=== PATIENT | male | born 1980 | race Caucasian/White ===

== ENCOUNTER 2016-08-01 15:05 | Emergency (ER) | payer SELFPAY ==
--- NOTE | 2016-08-01 15:14 | PDOC ---
Rapid Medical Evaluation Time Seen by Provider: 08/01/16 15:14 Medical Evaluation: Allergies Allergy/AdvReac Type Severity Reaction Status Date / Time No Known Allergies Allergy Verified 12/28/14 17:38 08/01/16 15:14 35 year old male with a history of asthma, depression, spontaneous PTX x 8 presents with right eye redness, swelling, and pain. Was doing yard work yesterday and felt a pebble hit his eye. Right sclera injected, tearing. No foreign body grossly visible. -To FT for further evaluation
[2016-08-01 15:22] VITALS: BP 141/92; PULSE 88; TEMP 97; BMI 15.3
[2016-08-01] MEDS ORDERED: FLUORESCEIN NA 1 EA STRIP ONE (15:46)
[2016-08-01] MEDS ORDERED: TETRACAINE 0.5% OPHTH SOLN 2 ML BOTTLE ONE (16:18)
[2016-08-01] MEDS ORDERED: ERYTHROMYCIN 0.5% OPHTHALMIC OINTMENT 3.5 GM TUBE ONE (16:29)
--- NOTE | 2016-08-01 17:14 | PDOC ---
[id number] [id number] OBJECT IN EYE/ RED Time Seen by Provider: 08/01/16 15:14 History Source: Patient Exam Limitations: No Limitations - History of Present Illness Initial Comments: 08/01/16 16:38 While at work yesterday, was cutting down some wooden pieces and felt a fragment bounce on his left thigh. States woke up this morning with burning, tearing, and redness. States vision is within normal limits, and has no drainage from his eye. Used eye wash at work with minimal resolved. States foreign body sensation in eye but feels is painful 08/02/16 22:49 Occurred: reports: yesterday Severity: reports: mild Pain Location: reports: other (eye) Loss of Consciousness: no loss of consciousness Associated Symptoms (Fall): denies symptoms Past History - Travel Traveled outside of the country in the last 30 days: No Close contact w/someone who was outside of country & ill: No - Past Medical History Allergies/Adverse Reactions: Allergies Allergy/AdvReac Type Severity Reaction Status Date / Time No Known Allergies Allergy Verified 08/01/16 15:18 Home Medications: Ambulatory Orders NK [No Known Home Medication] 08/01/16 Asthma: Yes Cardiac Disorders: No COPD: No Diabetes: No GI Disorders: No Disorders: No HTN: No Kidney Stones: No Psychiatric Problems: Yes (depression) Suicide Attempt (Hx): No Seizures: No - Surgical History Lung Surgery: Yes (8 chest tubes.) - Reproductive History Testicular Surgery: No - Psycho/Social/Smoking Cessation Hx Anxiety: No Suicidal Ideation: No Smoking Status: Yes Smoking History: Current every day smoker Have you smoked in the past 12 months: Yes Number of Cigarettes Smoked Daily: 10 Information on smoking cessation initiated: No Hx Alcohol Use: Yes (6 chiquis of beer a day) Drug/Substance Use Hx: Yes (cocaine) Substance Use Type: Alcohol, Cocaine Hx Substance Use Treatment: No Trauma Specific PMHX - Complaint Specific PMHX Back Injury: No Neck Injury: No Review of Systems - Review of Systems Able to Perform ROS?: Yes Is the patient limited Tamazight proficient: Yes Constitutional: Yes: Symptoms Reported, See HPI, Malaise HEENTM: Yes: Symptoms Reported, See HPI, Eye Pain, Tearing, Recent change in vision *Physical Exam - Vital Signs Last Vital Signs Temp Pulse Resp BP Pulse Ox 97 F L 88 20 141/92 97 08/01/16 15:19 08/01/16 15:19 08/01/16 15:19 08/01/16 15:19 08/01/16 15:19 - Physical Exam General Appearance: Yes: Nourished, Appropriately Dressed, Apparent Distress, Mild Distress HEENT: positive: MARY, Normal ENT Inspection, Normal Voice, TMs Normal, Pharynx Normal, Other (injected left eye, with tearing. Pupil is intact and equal to right. Vision is within normal limits. Slit lamp exam reveals to ulcerations approximately 2 mm x 2 mm each at midpoint pupil and 2 3:00 of left cornea. Foreign bodies detected) Neck: positive: Tender, Supple. negative: Lymphadenopathy (R), Lymphadenopathy (L) Respiratory/Chest: positive: Lungs Clear Musculoskeletal: positive: Normal Inspection Extremity: positive: Normal Capillary Refill, Normal Inspection Integumentary: positive: Normal Color, Pale Neurologic: positive: activity aid II-XII NML intact, Fully Oriented, Alert, Normal Mood/ Affect, Normal Response, Motor Strength 5/5 Progress Note - Progress Note Progress Note: Corneal abrasion, treating with erythromycin ointment and will follow-up with fire chief *DC/Admit/Observation/Transfer Diagnosis at time of Disposition: Corneal abrasion Qualifiers: Encounter type: initial encounter Laterality: right Qualified Code(s): S05.01XA - Injury of conjunctiva and corneal abrasion without foreign body, right eye, initial encounter - Discharge Dispostion Disposition: HOME Condition at time of disposition: Stable Admit: No - Referrals Referrals: Nilo Mckenzie MD [Staff Physician] - - Patient Instructions Printed Discharge Instructions: DI for Corneal Abrasion Additional Instructions: Rest, avoid rubbing eye May use lubricating drops as often as needed May use ibuprofen for pain relief Never use eye drops like Visine or "get the red out" as they well cause worsening eye redness Follow-up with fire chief tomorrow for thorough eye exam May use erythromycin ointment 3 times a day for antibiotic use - Post Discharge Activity Work/School Note: Back to Work
== END 2016-08-01 18:21 | disposition home or self-care (01) ==
LOC: JERFT 15:05
DX: S05.01XA Injury of conjunctiva and corneal abrasion without foreign body, right eye, initial encounter (principal); W20.8XXA Other cause of strike by thrown, projected or falling object, initial encounter; Y93.89 Activity, other specified; Y92.89 Other specified places as the place of occurrence of the external cause; Y99.0 Civilian activity done for income or pay; F17.210 Nicotine dependence, cigarettes, uncomplicated; J45.909 Unspecified asthma, uncomplicated; F32.9 Major depressive disorder, single episode, unspecified
CPT/HCPCS: 99281-25

== ENCOUNTER 2016-08-28 21:23 | Emergency (ER) | payer SELFPAY ==
[2016-08-28 21:30] VITALS: BP 141/94; PULSE 111; TEMP 97.8; BMI 16.7
== END 2016-08-28 21:55 | disposition left against medical advice (07) ==
LOC: JER 21:23
DX: Z53.21 Procedure and treatment not carried out due to patient leaving prior to being seen by health care provider (principal)
CPT/HCPCS: 99281-25

== ENCOUNTER 2016-10-04 20:42 | Emergency (ER) | payer OTHER ==
[2016-10-04 20:49] VITALS: BP 147/102; PULSE 88; TEMP 97.9; BMI 16.9
[2016-10-04] MEDS ORDERED: KETOROLAC TROMETHAMINE 30 MG/1 ML VIAL IM ONE (21:37)
--- NOTE | 2016-10-04 21:41 | PDOC ---
History of Present Illness - General Chief Complaint: Back Pain Stated Complaint: BACK PAIN Time Seen by Provider: 10/04/16 21:26 - History of Present Illness Initial Comments: 10/04/16 21:38 CHIEF COMPLAINT: back pain HISTORY OF PRESENT ILLNESS: 35-year-old male with history of 8 spontaneous pneumothoraces, asthma, depression, multi-substance abuse, [facility] to [facility] with lower left sided back pain after lifting a piece of furniture this morning. Patient reports the pain radiates down the left side of his leg. Patient denies any chest pain, shortness of breath and that this pain is not like his previous pneumothoraces. No recent travel or sick contacts. PAST MEDICAL HISTORY: Denies past medical history FAMILY HISTORY: Denies SOCIAL HISTORY:Current smoker, pack daily. Daily 6 pack of alcohol. Occasional cocaine use, last use 3 days ago.. SURGICAL HISTORY: Denies ALLERGIES: No known drug allergies REVIEW OF SYSTEMS General/Constitutional: Denies fever or chills. Denies weakness, weight change. HEENT: Denies change in vision. Denies ear pain or discharge. Denies sore throat. Cardiovascular: Denies chest pain or shortness of breath. Respiratory: Denies cough, wheezing, or hemoptysis. Gastrointestinal: Denies nausea, vomiting, diarrhea or constipation. Denies rectal bleeding. Genitourinary: Denies dysuria, frequency, or change in urination. Musculoskeletal: Left sided lower back pain, worse with walking, or sitting. Denies loss of bowel or bladder function, denies loss of sensation to LE b/l. Skin and breasts: Denies rash or easy bruising. Neurologic: Denies headache, vertigo, loss of consciousness, or loss of sensation. PHYSICAL EXAM General Appearance: Well-appearing, appropriately dressed. No apparent distress. HEENT: EOMI, PERRLA. No conjunctival pallor. No photophobia, scleral icterus. Neck: Supple. Trachea midline. No tenderness, rigidity, carotid bruit, stridor , lymphadenopathy, or thyromegaly. Respiratory/Chest: Lungs CTAB. Cardiovascular: RRR. S1, S2. Musculoskeletal/Extremities: Reproducible TTP to left lower back, no midline tenderness to thoracic or lumbar spine. Normal inspection. FROM of all extremities, normal capillary refill. Pelvis Stable. No CVA tenderness. No tenderness to extremities, pedal edema, swelling, erythema or deformity. Integumentary: Appropriate color, dry, warm. No cyanosis, erythema, jaundice or rash Neurologic: medical billing specialist II-XII intact. Fully oriented, alert. Appropriate mood/affect. Motor strength 5/5. No appreciable EOM palsy, facial droop or sensory deficit. Past History - Past Medical History Allergies/Adverse Reactions: Allergies Allergy/AdvReac Type Severity Reaction Status Date / Time No Known Allergies Allergy Verified 10/04/16 20:50 Home Medications: Ambulatory Orders Lidocaine 5% Patch [Lidoderm Patch -] 1 patch TP DAILY 10/04/16 Naproxen 250 mg PO BID #14 tablet 10/04/16 Ranitidine [Zantac -] 150 mg PO BID 10/04/16 Asthma: Yes Cardiac Disorders: No COPD: No Diabetes: No GI Disorders: No Disorders: No HTN: No Kidney Stones: No Psychiatric Problems: Yes (depression) Suicide Attempt (Hx): No Seizures: No - Surgical History Lung Surgery: Yes (8 chest tubes.) - Reproductive History Testicular Surgery: No - Immunization History Immunization Up to Date: Yes - Psycho/Social/Smoking Cessation Hx Anxiety: No Suicidal Ideation: No Smoking Status: Yes Smoking History: Current every day smoker Have you smoked in the past 12 months: Yes Number of Cigarettes Smoked Daily: 10 Information on smoking cessation initiated: No Hx Alcohol Use: Yes Drug/Substance Use Hx: Yes Substance Use Type: Cocaine Hx Substance Use Treatment: No Trauma Specific PMHX - Complaint Specific PMHX Back Injury: No Neck Injury: No *Physical Exam - Vital Signs Last Vital Signs Temp Pulse Resp BP Pulse Ox 97.9 F 88 18 147/102 98 10/04/16 20:48 10/04/16 20:48 10/04/16 20:48 10/04/16 20:48 10/04/16 20:48 Medical Decision Making - Medical Decision Making 10/04/16 21:41 35-year-old male with history of 8 spontaneous pneumothoraces, asthma, depression, multi-substance abuse, presents [facility] with lower left sided back pain after lifting a piece of furniture this morning. -30 mg IM Toradol Given patient's hx of multi-substance abuse, will not rx opioids or benzos. Naproxen rx sent to pharm Advised patient to take meds as prescribed and f/u with ortho this week. ADvised patient of signs and symptoms for return to ER; patient verbalized understanding and agrees to plan. *DC/Admit/Observation/Transfer Diagnosis at time of Disposition: Low back pain Qualifiers: Chronicity: acute Back pain laterality: left Sciatica presence: unspecified whether sciatica present Qualified Code(s): M54.5 - Low back pain - Discharge Dispostion Disposition: HOME Condition at time of disposition: Stable Admit: No - Prescriptions Prescriptions: Naproxen 250 mg PO BID #14 tablet - Referrals Referrals: Meg Hennessy [Primary Care Provider] - Jayson Hopkins MD [Staff Physician] - - Patient Instructions Printed Discharge Instructions: DI for Low Back Pain Additional Instructions: Please take medications as prescribed and follow up with Dr. Hopkins for further evaluation of your back pain; you may need an MRI or physical therapy. If you experience any loss of sensation to your legs, loss of bowel or bladder function , chest pain, shortness of breath, or any new or worsening symptoms, please return to the ER.
[2016-10-04] MEDS ORDERED: KETOROLAC TROMETHAMINE 30 MG/1 ML VIAL ONE (21:42)
== END 2016-10-04 21:54 | disposition home or self-care (01) ==
LOC: JERFT 20:42
PROC: 3E0233Z Introduction of Anti-inflammatory into Muscle, Percutaneous Approach (ICD-10-PCS; principal; 2016-10-04)
DX: M54.5 Low back pain (principal); J45.909 Unspecified asthma, uncomplicated; F32.9 Major depressive disorder, single episode, unspecified; F19.10 Other psychoactive substance abuse, uncomplicated; X50.0XXA Overexertion from strenuous movement or load, initial encounter
CPT/HCPCS: 99281-25

== ENCOUNTER 2018-02-22 16:34 | Emergency (ER) | payer SELFPAY ==
[2018-02-22] MEDS ORDERED: ALBUTEROL SO4 2.5/IPRATROPIUM 0.5 INH SOL 3 ML VIAL.NEB. NEB ONE ×3 (16:37→17:16)
[2018-02-22 16:39] VITALS: BP 139/89; PULSE 91; TEMP 98.9; BMI 16.0
--- NOTE | 2018-02-22 16:39 | PDOC ---
Rapid Medical Evaluation Chief Complaint: Cold Symptoms Time Seen by Provider: 02/22/18 16:35 Medical Evaluation: Allergies Allergy/AdvReac Type Severity Reaction Status Date / Time No Known Allergies Allergy Verified 10/04/16 20:50 02/22/18 16:35 37 year old with cough x 2 weeks with chest pain and shortness of breath. had fever now resolved. PE: patient alert + dry cough, coarse breath sounds. A; cough bronchitis? P: xray duoneb patient to the Er for further management of care. Discharge Disposition - Diagnosis Cough - Referrals - Patient Instructions - Post Discharge Activity
[2018-02-22] MEDS ORDERED: AZITHROMYCIN 250 MG TABLET ONE (17:12)
[2018-02-22] MEDS ORDERED: predniSONE 20 MG TABLET (UD) ONE (17:13)
[2018-02-22] MEDS ORDERED: predniSONE 20 MG TABLET (UD) PO ONE (17:16)
[2018-02-22] MEDS ORDERED: AZITHROMYCIN 250 MG TABLET PO ONE (17:18)
--- NOTE | 2018-02-22 17:57 | PDOC ---
History of Present Illness - General Chief Complaint: Cold Symptoms Stated Complaint: Cold Symptoms Time Seen by Provider: 02/22/18 16:35 History Source: Patient Exam Limitations: No Limitations - History of Present Illness Initial Comments: 02/22/18 17:52 And worsening cough. States has been ill for approximately 2 weeks with thick yellowish phlegm, states had fever last week. States fever has resolved but has persistent and worsening shortness of breath with wheezing and cough. Has used some [id number] medications with minimal resolved. Patient smokes currently, works construction/demolition but admits wearing mask. Timing/Duration: reports: constant, getting worse Severity: reports: moderate Possible Cause: Yes: illness exposure Modifying Factors: improves with: activity, coughing Associated Symptoms: reports: cough, fever/chills Past History - Travel Traveled outside of the country in the last 30 days: No Close contact w/someone who was outside of country & ill: No - Past Medical History Allergies/Adverse Reactions: Allergies Allergy/AdvReac Type Severity Reaction Status Date / Time No Known Allergies Allergy Verified 02/22/18 16:35 Home Medications: Ambulatory Orders Albuterol 0.083% Nebulizer Hannah [Ventolin 0.083% Nebulizer Soln -] 1 neb NEB Q4H PRN #30 vial 02/22/18 Azithromycin [Zithromax -] 250 mg PO UTDICT #6 tab 02/22/18 predniSONE [Deltasone -] 20 mg PO BID #8 tablet 02/22/18 Asthma: Yes Cardiac Disorders: No COPD: No Diabetes: No GI Disorders: No Disorders: No HTN: No Kidney Stones: No Psychiatric Problems: Yes (depression) Seizures: No - Surgical History Lung Surgery: Yes (8 chest tubes.) - Reproductive History Testicular Surgery: No - Immunization History Immunization Up to Date: Yes - Suicide/Smoking/Psychosocial Hx Smoking Status: Yes Smoking History: Current every day smoker Have you smoked in the past 12 months: Yes Number of Cigarettes Smoked Daily: 10 Information on smoking cessation initiated: No Hx Alcohol Use: Yes Drug/Substance Use Hx: Yes Substance Use Type: Cocaine Hx Substance Use Treatment: No Respiratory Specific PMHX - Complaint Specific PMHX TB (Tuberculosis): No Review of Systems - Review of Systems Able to Perform ROS?: Yes Is the patient limited Algerian proficient: Yes Constitutional: Yes: Symptoms Reported, See HPI, Malaise. No: Fever HEENTM: Yes: See HPI, Nose Congestion. No: Symptoms Reported Respiratory: Yes: Symptoms reported, Cough, Orthopnea, Wheezing Cardiac (ROS): No: Symptoms Reported Musculoskeletal: Yes: See HPI. No: Symptoms Reported, Back Pain Neurological: Yes: Symptoms reported, See HPI, Headache All Other Systems: Reviewed and Negative *Physical Exam - Vital Signs Last Vital Signs Temp Pulse Resp BP Pulse Ox 98.9 F 91 H 20 139/89 96 02/22/18 16:38 02/22/18 16:38 02/22/18 16:38 02/22/18 16:38 02/22/18 16:38 - Physical Exam General Appearance: Yes: Nourished, Appropriately Dressed, Apparent Distress HEENT: positive: MARY, TMs Normal (congested but landmarks easily visualized), Pharynx Normal Neck: positive: Supple. negative: Lymphadenopathy (R), Lymphadenopathy (L) Respiratory/Chest: positive: Rhonchi, Wheezing. negative: Lungs Clear (worse inspiratory and expiratory wheezes, worse on right than left.), Normal Breath Sounds Gastrointestinal/Abdominal: positive: Soft. negative: Tender Extremity: positive: Normal Capillary Refill, Normal Inspection, Normal Range of Motion Integumentary: positive: Normal Color, Dry, Warm, Pale Neurologic: positive: special trackwork blacksmith II-XII NML intact, Fully Oriented, Alert, Normal Mood/ Affect, Normal Response, Motor Strength /5 ED Treatment Course - Medications Given in the ED: ED Medications Discontinued Medications Generic Name Dose Route Start Last Admin Trade Name Freq PRN Reason Stop Dose Admin Albuterol/Ipratropium 1 amp 02/22/18 16:37 02/22/18 16:40 Duoneb - NEB 02/22/18 16:38 1 amp ONCE ONE Administration Albuterol/Ipratropium 2 amp 02/22/18 17:16 02/22/18 17:27 Duoneb - NEB 02/22/18 17:17 2 amp ONCE ONE Administration Azithromycin 500 mg 02/22/18 17:18 02/22/18 17:27 Zithromax - PO 02/22/18 17:19 500 mg ONCE ONE Administration Prednisone 60 mg 02/22/18 17:16 02/22/18 17:27 Deltasone - PO 02/22/18 17:17 60 mg ONCE ONE Administration Progress Note - Progress Note Progress Note: Bronchitis, will treat with Z Pack and DuoNebs *DC/Admit/Observation/Transfer Diagnosis at time of Disposition: Cough - Discharge Dispostion Disposition: HOME Condition at time of disposition: Stable Decision to Admit order: No - Referrals - Patient Instructions Printed Discharge Instructions: DI for Acute Bronchitis Additional Instructions: Rest, drink lots of fluids: Teas, water, soups, Pedialyte Saltwater gargles Steamy showers/seem to face break up mucus Avoid contact with others until fevers and cough resolved Lots of handwashing and good hygiene Continue [id number] medications for symptomatic relief Tylenol or Motrin for fever and pain Continue albuterol nebulizers every 4-6 hours for the next 2 days then as needed for continued cough Prednisone as directed until completed Zithromax as directed Followup with private physician in one to 2 days Return to emergency department / pediatric hospital for worsened symptoms, fevers, dehydration - Post Discharge Activity Forms/Work/School Notes: Back to Work
== END 2018-02-22 18:32 | disposition home or self-care (01) ==
LOC: JERFT 16:34
PROC: 3E0F7GC Introduction of Other Therapeutic Substance into Respiratory Tract, Via Natural or Artificial Opening (ICD-10-PCS; principal; 2018-02-22)
PROC: 3E0F7GC Introduction of Other Therapeutic Substance into Respiratory Tract, Via Natural or Artificial Opening (ICD-10-PCS; 2018-02-22)
DX: J20.9 Acute bronchitis, unspecified (principal)
CPT/HCPCS: 71046-TC-FY; 99281-25; J7620

== ENCOUNTER 2019-08-06 13:50 | Inpatient (IN) | payer OTHER ==
--- NOTE | 2019-08-06 14:20 | BHS.RME ---
Substance Use & Tx History - Substance Use History Opiates (Heroin) Substance amount: 4 BAGS Frequency of use: Less than 3 times per week Substance route: Injection (ex: intravenous or skin popping) Date of Last Use: 08/05/19 Cocaine (Powder) Substance amount: 3 GRAMS Frequency of use: Daily Substance route: Injection (ex: intravenous or skin popping) Date of Last Use: 08/05/19 Nicotine Substance amount: 1 PACK Frequency of use: Daily Substance route: Smoking Date of Last Use: 08/06/19 COWS - Scale Resting Pulse: 1= ND 81-100 Sweatin= Beads of Sweat on Face Restless Observation: 3= Extraneous Movement Pupil Size: 1= Pupils >than Normal Bone or Joint Aches: 2= Severe Diffuse Aches Runny Nose/ Eye Tearin= Runny Nose/Eyes GI Upset > 30mins: 1= Stomach Cramp Tremor Observation: 2= Slight Tremor Visible Yawning Observation: 1= 1-2x During Session Anxiety or Irritability: 2=Irritable/Anxious Goose Flesh Skin: 3=Piloerection COWS Score: 21
--- NOTE | 2019-08-06 15:09 | HP ---
COWS - Scale Resting Pulse: 1= MD 81-100 Sweatin= Beads of Sweat on Face Restless Observation: 3= Extraneous Movement Pupil Size: 1= Pupils >than Normal Bone or Joint Aches: 2= Severe Diffuse Aches Runny Nose/ Eye Tearin= Runny Nose/Eyes GI Upset > 30mins: 1= Stomach Cramp Tremor Observation: 2= Slight Tremor Visible Yawning Observation: 1= 1-2x During Session Anxiety or Irritability: 2=Irritable/Anxious Goose Flesh Skin: 3=Piloerection COWS Score: 21 CIWA Score - Admission Criteria OASAS Guidelines: Admission for Medically Managed Detox: Requires at least one of the followin. CIWA greater than 12 2. Seizures within the past 24 hours 3. Delirium tremens within the past 24 hours 4. Hallucinations within the past 24 hours 5. Acute intervention needed for co occurring medical disorder 6. Acute intervention needed for co occurring psychiatric disorder 7. Severe withdrawal that cannot be handled at a lower level of care (continued vomiting, continued diarrhea, abnormal vital signs) requiring intravenous medication and/or fluids 8. Admitting History and Physical - Admission Chief Complaint: Mr. Dupont is a 38 yo gentleman who presents to [facility] stating he is here for "heroin withdrawal" and requests detox. History of Present Illness: Mr. Dupont is a 38 yo gentleman who presents to [facility] stating he is here for "heroin withdrawal" and requests detox. The patient states he was admitted here in the past ~2011. PMH: Asthma, COPD PSH: none Psych: depresion: lexapro, seroquel SOC: lives with parents roscoe told him he has to "go detox or get out of [facility]". Substance use hx Heroin: 4 bags, IV, began 1-2 mos ago, last use 08/05/19. Was on Suboxone: 8/2 daily, Nicho García x 5 months, last time 2 weeks ago. Relapsed and did not return Cocaine: 3 grams , IV, began at age 33, last use with heroin: 08/05/19 No: methadone History Source: Patient Limitations to Obtaining History: No Limitations - Smoking History Smoking history: Current every day smoker Have you smoked in the past 12 months: Yes Aproximately how many cigarettes per day: 10 - Alcohol/Substance Use Hx Alcohol Use: Yes Admission ROS [facility] - HPI Allergies/Adverse Reactions: Allergies Allergy/AdvReac Type Severity Reaction Status Date / Time No Known Allergies Allergy Verified 02/22/18 16:35 - Ebola screening Have you traveled outside of the country in the last 21 days: No Have you had contact with anyone from an Ebola affected area: No Have you been sick,other than usual withdrawal symptoms: No Do you have a fever: No - Review of Systems Constitutional: Unintentional Wgt. Loss (20 lb loss in the past 3 mos) EENT: reports: No Symptoms Reported Respiratory: reports: No Symptoms reported Cardiac: reports: No Symptoms Reported GI: reports: Nausea : reports: No Symptoms Reported Musculoskeletal: reports: Joint Pain Integumentary: reports: No Symptoms Reported Neuro: reports: No Symptoms reported Endocrine: reports: Excessive Sweating (withdrawal) Hematology: reports: No Symptoms Reported Psychiatric: reports: Depressed Patient History - Patient Medical History Hx Asthma: Yes Hx Chronic Obstructive Pulmonary Disease (COPD): Yes Hx Cardiac Disorders: No Hx Hypertension: No Hx Seizures: No Hx Diabetes: No Hx Gastrointestinal Disorders: No Hx Genitourinary Disorders: No Hx Sexually Transmitted Disorders: No Hx Renal Disease (ESRD): No Hx Depression: Yes Hx Suicide Attempt: No - Patient Surgical History Past Surgical History: Yes Hx Lung Surgery: Yes (8 chest tubes.) Anesthesia Reaction: No - PPD History Date: 06/30/11 PPD to be Administered?: Yes - Smoking Cessation Smoking history: Current every day smoker Have you smoked in the past 12 months: Yes Aproximately how many cigarettes per day: 10 Hx Chewing Tobacco Use: No Initiated information on smoking cessation: Yes 'Breaking Loose' booklet given: 08/06/19 - Substances abused Heroin Substance route: Injection Amount used: 4 bags Age of first use: 38 Date of last use: 08/06/19 Cocaine Substance route: Injection Amount used: 3 grams Age of first use: 33 Date of last use: 08/05/19 Admission Physical Exam [facility] - Physical General Appearance: Yes: Disheveled, Thin HEENTM: Yes: Hearing grossly Normal, Normocephalic, Normal Voice Respiratory: Yes: Lungs Clear Neck: Yes: Within Normal Limits Breast: Yes: Breast Exam Deferred Cardiology: Yes: Regular Rate, S1, S2 Abdominal: Yes: Non Tender, Flat, Soft, Decreased BS Back: Yes: Normal Inspection Musculoskeletal: Yes: Within Normal Limits Extremities: Yes: Normal Inspection Neurological: Yes: Alert Integumentary: Yes: Track Lynn (clean, bilateral medial elbow region) - Diagnostic (1) Opioid dependence with withdrawal Current Visit: Yes Status: Acute (2) Cocaine abuse Current Visit: Yes Status: Acute (3) Nicotine dependence Current Visit: Yes Status: Acute (4) Asthma Current Visit: No Status: Chronic (5) COPD (chronic obstructive pulmonary disease) Current Visit: No Status: Chronic (6) Depression Current Visit: Yes Status: Acute (7) Intravenous drug abuse Current Visit: Yes Status: Acute Cleared for Admission S - Detox or Rehab [facility] Level of Care: Medically Managed Detox Regimen/Protocol: Methadone Breathalyzer - Breathalyzer Breathalyzer: 0 Urine Drug Screen - Results Urine drug screen results: TRAE-Cocaine, MOP-Opiates Inpatient Rehab Admission - Rehab Decision to Admit Inpatient rehab admission?: No
[2019-08-06] MEDS ORDERED: MAGNESIUM HYDROX 2400MG/30ML ORAL SUSPENSION 30 ML CUP PO PRN (15:23)
[2019-08-06] MEDS ORDERED: IBUPROFEN 400 MG TABLET (FP) PO PRN (15:23)
[2019-08-06] MEDS ORDERED: MAGNESIUM CITRATE 300 ML BOTTLE PO PRN (15:23)
[2019-08-06] MEDS ORDERED: ACETAMINOPHEN 325 MG TABLET (FP) PO PRN ×2 (15:23)
[2019-08-06] MEDS ORDERED: MAG HYDROX/AL HYDROX/SIMETH 30 ML UNIT-DOSE CUP PO PRN (15:23)
[2019-08-06] MEDS ORDERED: NICOTINE POLACRILEX 2 MG GUM BUC PRN (15:23)
[2019-08-06] MEDS ORDERED: METHOCARBAMOL 500 MG TABLET PO PRN (15:23)
[2019-08-06] MEDS ORDERED: cloNIDine HCL 0.1 MG TABLET PO PRN (15:23)
[2019-08-06 15:47] VITALS: BMI 13.9
[2019-08-06] MEDS: hydrOXYzine PAMOATE 25 MG CAPSULE (FP) PO SCH ×2 (16:59→22:03)
[2019-08-06] MEDS ORDERED: METHADONE HCL 10 MG TABLET (FOR DETOX USE ONLY) PO ONE (17:00)
[2019-08-06] MEDS ORDERED: NICOTINE 7 MG/24 HOURS TOPICAL PATCH TD SCH (17:00)
[2019-08-06] MEDS ORDERED: ONDANSETRON *ODT* 4 MG TABLET SL ONE (17:00)
[2019-08-06] MEDS: NICOTINE 21 MG/24 HOURS TOPICAL PATCH TD SCH (17:05)
[2019-08-06] MEDS: PRENATAL VITAMINS W/ FOLIC ACID TABLET (FP) PO SCH (17:14)
[2019-08-06] MEDS: THIAMINE HCL 100 MG TABLET (FP) PO SCH (22:03)
[2019-08-06] MEDS: MELATONIN 5 MG TABLETS PO SCH (22:03)
[2019-08-07] MEDS: hydrOXYzine PAMOATE 25 MG CAPSULE (FP) PO SCH ×5 (05:19→22:05)
[2019-08-07] MEDS: MENTHOL/PHENOL 1 EACH UD MM PRN ×2 (05:20→22:06)
[2019-08-07] MEDS ORDERED: METHADONE HCL 5 MG TABLET (FOR DETOX USE ONLY) ONE (09:22)
[2019-08-07] MEDS ORDERED: METHADONE HCL 10 MG TABLET (FOR DETOX USE ONLY) ONE (09:22)
--- NOTE | 2019-08-07 09:37 | CONSULT ---
[facility] Psychiatric Consult - Data Date of interview: 08/07/19 Admission source: [facility] Identifying data: Patient is a 38 year old single male, without children, unemployed, living with parents and not receiving financial assistance. This is patient's first admission to detox at [facility]. Patient admitted to for opiate and cocaine dependence. Substance Abuse History: Smoking Cessation. Smoking history: Current every day smoker. Have you smoked in the past 12 months: Yes. Aproximately how many cigarettes per day: 10. Hx Chewing Tobacco Use: No. Initiated information on smoking cessation: Yes. 'Breaking Loose' booklet given: 08/06/19. - Substances abused. Heroin. Substance route: Injection. Amount used: 4 bags. Age of first use: 38. Date of last use: 08/06/19. Cocaine. Substance route: Injection. Amount used: 3 grams. Age of first use: 33. Date of last use: 08/05/19 Medical History: Asthma, COPD Psychiatric History: Interview conducted bedside. Mr. Dupont's first psychiatric contact was at the age of 23 after seeing a psychiatrist in an outpatient clinic in [place], [place] due to feeling depressed. He reports being diagnosed with depression and was prescribed lexapro + Seroquel. After several years he discontinued treatment and did not seek psychiatric treatment again until last year at the [facility] in [place], [place]. Mr. Dupont states that he was prescribed lexapro 10mg + Seroquel 50mg HS. As per patient he continues to take his medications today but reports most recently seeing a psychiatrist in 2019. Mediation compliance is questionable. Patient reports history of three suicide attempt via self mutilation by cutting. No reported history of psychiatric hospitalizations. At present patient denies depressive symptoms + suicidal/homicial ideation. Physical/Sexual Abuse/Trauma History: denies. Mental Status Exam - Mental Status Exam Alert and Oriented to: Time, Place, Person Cognitive Function: Good Patient Appearance: Well Groomed (Thin frame) Mood: Withdrawn Affect: Mood Congruent Patient Behavior: Cooperative Speech Pattern: Appropriate Voice Loudness: Normal Thought Process: Intact, Goal Oriented Thought Disorder: Not Present Hallucinations: Denies Suicidal Ideation: Denies Homicidal Ideation: Denies Insight/Judgement: Poor Sleep: Fair Appetite: Fair Muscle strength/Tone: Normal Gait/Station: Normal Psychiatric Findings - Problem List ([place] 1, 2,3) (1) Cocaine dependence Status: Acute (2) Opioid dependence with withdrawal Status: Acute (3) History of depression Status: Chronic (4) Nicotine dependence Status: Acute Qualifiers: Nicotine product type: cigarettes Substance use status: in withdrawal Qualified Code(s): F17.213 - Nicotine dependence, cigarettes, with withdrawal - Initial Treatment Plan Initial Treatment Plan: Psychoeducation provided. Detoxification in progress. Will order Lexapro 10mg + Seroquel 25mg HS. Benefits and side effects discussed. Verbal consent given.
--- NOTE | 2019-08-07 09:40 | PN ---
BHS COWS - Scale Resting Pulse: 0= [place] 80 or Below Sweatin= No chills or Flushing Restless Observation: 0= Sits Still Pupil Size: 1= Pupils >than Normal Bone or Joint Aches: 1= Mild Discomfort Runny Nose/ Eye Tearin= Nasal Congestion GI Upset > 30mins: 1= Stomach Cramp Tremor Observation of Outstretched Hands: 1= Tremor [place], Not Seen Yawning Observation: 1= 1-2x During Session Anxiety or Irritability: 2=Irritable/Anxious Goose Flesh Skin: 0=Smooth Skin COWS Score: 8 BHS Progress Note (SOAP) Subjective: alert,irritable,anxious,pain in the body and back Objective: 08/07/19 09:38 Vital Signs Temperature 98.4 F 08/07/19 08:36 Pulse Rate 79 08/07/19 08:36 Respiratory Rate 16 08/07/19 08:36 Blood Pressure 94/59 L 08/07/19 08:36 O2 Sat by Pulse Oximetry (%) 95 08/07/19 06:03 08/07/19 09:39 labs pending Assessment: 08/07/19 09:39 withdrawal symptom Plan: continue detox methadone regimen
[2019-08-07] MEDS: PRENATAL VITAMINS W/ FOLIC ACID TABLET (FP) PO SCH (09:43)
[2019-08-07] MEDS: BISMUTH SUBSALICYLATE 524 MG/30 ML UD PO PRN ×3 (09:49→17:14)
[2019-08-07] MEDS: NICOTINE 21 MG/24 HOURS TOPICAL PATCH TD SCH (09:49)
[2019-08-07] MEDS ORDERED: METHADONE (DETOX) 20 MG, METHADONE (DETOX) 5 MG PO ONE (10:00)
[2019-08-07] MEDS: ESCITALOPRAM OXALATE 10 MG TABLET PO SCH (12:02)
[2019-08-07 18:33] LABS: HEMOGLOBIN 12.4 GM/dL (11.7-16.9); MCH 27.8 pg (25.7-33.7); MCHC 32.6 g/dl (32.0-35.9); MEAN CELL VOLUME 85.4 fl (80-96); MEAN PLT VOLUME 9.4 fl (7.5-11.1); PLATELET COUNT 373 K/MM3 (134-434); RBC 4.45 M/mm3 (4.00-5.60); RDW 15.9 % (11.9-15.9); WHITE BLOOD COUNT 11.2 K/mm3 (4.0-10.0)
[2019-08-07 18:44] LABS: ALBUMIN 3.5 g/dl (3.4-5.0); BILIRUBIN,TOTAL 0.2 mg/dL (0.2-1); BLOOD UREA NITROGEN 10.7 mg/dL (7-18); CREATININE 0.8 mg/dL (0.55-1.3); POTASSIUM 4.2 mmol/L (3.5-5.1); TOT PROT 8.6 g/dl (6.4-8.2)
[2019-08-07] MEDS ORDERED: QUEtiapine FUMARATE 50 MG TABLET PO SCH (22:00)
[2019-08-07] MEDS: QUEtiapine FUMARATE 25 MG TABLET PO SCH (22:05)
[2019-08-07] MEDS: THIAMINE HCL 100 MG TABLET (FP) PO SCH (22:05)
[2019-08-07] MEDS: MELATONIN 5 MG TABLETS PO SCH (22:05)
[2019-08-08] MEDS: hydrOXYzine PAMOATE 25 MG CAPSULE (FP) PO SCH ×5 (06:08→22:02)
[2019-08-08] MEDS: MENTHOL/PHENOL 1 EACH UD MM PRN (06:10)
[2019-08-08] MEDS: guaiFENesin 200 MG/10 ML 10 ML UNIT-DOSE CUPS PO PRN ×2 (07:38→22:03)
--- NOTE | 2019-08-08 08:43 | PN ---
BHS COWS - Scale Resting Pulse: 1= [place] 81-100 Sweatin= Chills/Flushing Restless Observation: 1= Difficult to Sit Still Pupil Size: 0= Normal to Room Light Bone or Joint Aches: 1= Mild Discomfort Runny Nose/ Eye Tearin= None GI Upset > 30mins: 0= None Tremor Observation of Outstretched Hands: 0= None Yawning Observation: 0= None Anxiety or Irritability: 1=Feels Anxious/Irritable Goose Flesh Skin: 0=Smooth Skin COWS Score: 5 BHS Progress Note (SOAP) Subjective: Complains of cough Objective: 08/08/19 08:42 Laboratory Tests 08/06/19 08/06/19 08/06/19 15:15 15:15 15:15 WBC 11.2 H RBC 4.45 Hgb 12.4 Hct 38.0 MCV 85.4 MCH 27.8 D MCHC 32.6 RDW 15.9 D Plt Count 373 D MPV 9.4 Sodium 138 Potassium 4.2 Chloride 105 Carbon Dioxide 28 Anion Gap 5 L BUN 10.7 Creatinine 0.8 Est GFR (CKD-EPI)AfAm 129.51 Est GFR (CKD-EPI)NonAf 111.74 Random Glucose 102 Calcium 9.0 Total Bilirubin 0.2 AST 35 ALT 40 Alkaline Phosphatase 196 H Total Protein 8.6 H Albumin 3.5 Syphilis Serology Non-reactive HIV Ag/Ab Combo Qual 08/07/19 07:15 WBC RBC Hgb Hct MCV MCH MCHC RDW Plt Count MPV Sodium Potassium Chloride Carbon Dioxide Anion Gap BUN Creatinine Est GFR (CKD-EPI)AfAm Est GFR (CKD-EPI)NonAf Random Glucose Calcium Total Bilirubin AST ALT Alkaline Phosphatase Total Protein Albumin Syphilis Serology HIV Ag/Ab Combo Qual Negative Vital Signs - 24 hr 08/07/19 08/07/19 08/07/19 12:33 16:37 20:37 Temperature 98.2 F 97.2 F L 97.5 F L Pulse Rate 69 56 L 59 L Respiratory 16 16 18 Rate Blood Pressure 101/66 81/55 L 96/65 O2 Sat by Pulse 95 Oximetry (%) 08/08/19 08/08/19 08/08/19 00:30 03:30 05:50 Temperature 97.7 F Pulse Rate 98 H Respiratory 18 18 16 Rate Blood Pressure 91/65 O2 Sat by Pulse Oximetry (%) 08/08/19 06:48 Temperature Pulse Rate Respiratory Rate Blood Pressure O2 Sat by Pulse 98 Oximetry (%) PE Gnl: WDWN, in mild distress Mental status: awake, alert, restless Motor: moves limbs well Coordination: nl Assessment: 08/08/19 08:43 1. Opioid use disorder 2. Cocaine use disorder 3. Nicotine dependence 4. cough 5. Hisstory of Depression 08/08/19 08:44 Plan: 1. Methadone withdrawal protocol 2. Nicotine patch 3. seen by Psychiatry, restarted Lexapro and Seroquel 4. Robitussin prn
[2019-08-08] MEDS ORDERED: METHADONE HCL 10 MG TABLET (FOR DETOX USE ONLY) PO ONE (10:00)
[2019-08-08] MEDS: ESCITALOPRAM OXALATE 10 MG TABLET PO SCH (10:10)
[2019-08-08] MEDS: NICOTINE 21 MG/24 HOURS TOPICAL PATCH TD SCH (10:10)
[2019-08-08] MEDS: PRENATAL VITAMINS W/ FOLIC ACID TABLET (FP) PO SCH (10:10)
[2019-08-08] MEDS: THIAMINE HCL 100 MG TABLET (FP) PO SCH (22:02)
[2019-08-08] MEDS: QUEtiapine FUMARATE 25 MG TABLET PO SCH (22:02)
[2019-08-08] MEDS: MELATONIN 5 MG TABLETS PO SCH (22:02)
[2019-08-09] MEDS: hydrOXYzine PAMOATE 25 MG CAPSULE (FP) PO SCH ×5 (08:14→22:05)
--- NOTE | 2019-08-09 09:03 | PN ---
"BHS COWS - Scale Resting Pulse: 1= [place] 81-100 Sweatin= Chills/Flushing Restless Observation: 1= Difficult to Sit Still Pupil Size: 1= Pupils >than Normal Bone or Joint Aches: 1= Mild Discomfort Runny Nose/ Eye Tearin= Nasal Congestion GI Upset > 30mins: 1= Stomach Cramp Tremor Observation of Outstretched Hands: 0= None Yawning Observation: 0= None Anxiety or Irritability: 1=Feels Anxious/Irritable Goose Flesh Skin: 3=Piloe[place] COWS Score: 11 BHS Progress Note (SOAP) Subjective: S; Pt would like to leave tomorrow- says he needs to go to court and says court is open on Sunday. Pt has been on suboxone in the past- says he stopped b/c he was kicked out of medicaid. Says with Suboxone he was able to stay without using heroin. Has narcan kit at home. This report was requested by: Greta Cash | Reference #: [id number] Others' Prescriptions Patient Name: Lloyd Dupont Date: 1980 Address: [address] [place] [address] Sex: Male Rx Written Rx Dispensed Drug Quantity Days Supply Prescriber Name Payment Method Dispenser buprenorphine-naloxone 12[facility]3 [id number]uprenorphine-nalox[facility] 12[id number]uprenorphine-naloxone 12-3 mg sl film 14 14 [place] [facility] [employer] [facility] #[id number] buprenorphine-naloxone 12-3 mg sl film 14 [id number] Laboratory Tests 08/06/19 08/06/19 08/06/19 15:15 15:15 15:15 WBC 11.2 H RBC 4.45 Hgb 12.4 Hct 38.0 MCV 85.4 MCH 27.8 D MCHC 32.6 RDW 15.9 D Plt Count 373 D MPV 9.4 Sodium 138 Potassium 4.2 Chloride 105 Carbon Dioxide 28 Anion Gap 5 L BUN 10.7 Creatinine 0.8 Est GFR (CKD-EPI)AfAm 129.51 Est GFR (CKD-EPI)NonAf 111.74 Random Glucose 102 Calcium 9.0 Total Bilirubin 0.2 AST 35 ALT 40 Alkaline Phosphatase 196 H Total Protein 8.6 H Albumin 3.5 Syphilis Serology Non-reactive HIV Ag/Ab Combo Qual 08/07/19 07:15 WBC RBC Hgb Hct MCV MCH MCHC RDW Plt Count MPV Sodium Potassium Chloride Carbon Dioxide Anion Gap BUN Creatinine Est GFR (CKD-EPI)AfAm Est GFR (CKD-EPI)NonAf Random Glucose Calcium Total Bilirubin AST ALT Alkaline Phosphatase Total Protein Albumin Syphilis Serology HIV Ag/Ab Combo Qual Negative Laboratory Tests 08/06/19 08/06/19 08/06/19 15:15 15:15 15:15 WBC 11.2 H RBC 4.45 Hgb 12.4 Hct 38.0 MCV 85.4 MCH 27.8 D MCHC 32.6 RDW 15.9 D Plt Count 373 D MPV 9.4 Sodium 138 Potassium 4.2 Chloride 105 Carbon Dioxide 28 Anion Gap 5 L BUN 10.7 Creatinine 0.8 Est GFR (CKD-EPI)AfAm 129.51 Est GFR (CKD-EPI)NonAf 111.74 Random Glucose 102 Calcium 9.0 Total Bilirubin 0.2 AST 35 ALT 40 Alkaline Phosphatase 196 H Total Protein 8.6 H Albumin 3.5 Syphilis Serology Non-reactive HIV Ag/Ab Combo Qual 08/07/19 07:15 WBC RBC Hgb Hct MCV MCH MCHC RDW Plt Count MPV Sodium Potassium Chloride Carbon Dioxide Anion Gap BUN Creatinine Est GFR (CKD-EPI)AfAm Est GFR (CKD-EPI)NonAf Random Glucose Calcium Total Bilirubin AST ALT Alkaline Phosphatase Total Protein Albumin Syphilis Serology HIV Ag/Ab Combo Qual Negative Vital Signs - 24 hr 08/08/19 08/08/19 08/09/19 13:00 20:43 00:37 Temperature 97.7 F 97 F L Pulse Rate 97 H 68 Respiratory 18 16 18 Rate Blood Pressure 97/55 L 107/71 O2 Sat by Pulse 99 99 Oximetry (%) 08/09/19 08/09/19 08/09/19 06:03 07:30 08:42 Temperature 97.8 F 97.3 F L Pulse Rate 75 75 86 Respiratory 16 16 16 Rate Blood Pressure 90/48 L 124/77 120/71 O2 Sat by Pulse 98 Oximetry (%) a/p: OUD- pt completing methadone detox protocol wants to leave tomorrow- pt has been on Suboxone in the past Suboxone prescription sent to [place]- nurse to pecan picker and hold for pt until discharge tomorrow. pt given handout on home induction protocol Pt will leave after methadone dose tomorrow. Pt encouraged to eat a regular wholesome diet"
[2019-08-09] MEDS: BISMUTH SUBSALICYLATE 524 MG/30 ML UD PO PRN ×3 (09:20→17:22)
[2019-08-09] MEDS ORDERED: cloNIDine HCL 0.1 MG TABLET PO PRN (09:26)
[2019-08-09] MEDS ORDERED: METHADONE (DETOX) 10 MG, METHADONE (DETOX) 5 MG PO ONE (10:00)
[2019-08-09] MEDS ORDERED: METHADONE HCL 10 MG TABLET (FOR DETOX USE ONLY) ONE (10:01)
[2019-08-09] MEDS ORDERED: METHADONE HCL 5 MG TABLET (FOR DETOX USE ONLY) ONE (10:01)
[2019-08-09] MEDS: PRENATAL VITAMINS W/ FOLIC ACID TABLET (FP) PO SCH (10:07)
[2019-08-09] MEDS: ESCITALOPRAM OXALATE 10 MG TABLET PO SCH (10:07)
[2019-08-09] MEDS: NICOTINE 21 MG/24 HOURS TOPICAL PATCH TD SCH (10:08)
[2019-08-09] MEDS: THIAMINE HCL 100 MG TABLET (FP) PO SCH (22:05)
[2019-08-09] MEDS: QUEtiapine FUMARATE 25 MG TABLET PO SCH (22:05)
[2019-08-09] MEDS: MELATONIN 5 MG TABLETS PO SCH (22:06)
[2019-08-10] MEDS: hydrOXYzine PAMOATE 25 MG CAPSULE (FP) PO SCH ×2 (07:25→09:33)
[2019-08-10 09:03] VITALS: BP 101/65; PULSE 63; TEMP 97.3
--- NOTE | 2019-08-10 09:15 | DS ---
[facility] Detox Discharge Summary Admission Date: 08/06/19 Discharge Date: 08/10/19 - History Present History: Opioid Dependence Additional Comments: 38 years old male admitted on 08/06/19 for opiate withdrawal sx management treated with methadone detox regiment seen by psychiatrist kevon ramirez and seroquel alert oriented x 3 respiratory clear lung sound bilaterally on auscultation abdomen soft flat no rebound tenderness skin warm and dry Pertinent Past History: time for discharge 47 minutes patient was at the suboxone maintenance program 3 months ago prefers to returning to the program patient has court date today and received 30 packed of suboxone 8-2mg sl from [facility] upon discharged - Physical Exam Results Vital Signs: Vital Signs Temperature 97.3 F L 08/10/19 08:34 Pulse Rate 63 08/10/19 08:34 Respiratory Rate 18 08/10/19 08:34 Blood Pressure 101/65 08/10/19 08:34 O2 Sat by Pulse Oximetry (%) 99 08/10/19 05:39 Pertinent Admission Physical Exam Findings: opiate withdrawal Vital Signs Temperature 97.3 F L 08/10/19 08:34 Pulse Rate 63 08/10/19 08:34 Respiratory Rate 18 08/10/19 08:34 Blood Pressure 101/65 08/10/19 08:34 O2 Sat by Pulse Oximetry (%) 99 08/10/19 05:39 Laboratory Last Values WBC 11.2 K/mm3 (4.0-10.0) H 08/06/19 15:15 RBC 4.45 M/mm3 (4.00-5.60) 08/06/19 15:15 Hgb 12.4 GM/dL (11.7-16.9) 08/06/19 15:15 Hct 38.0 % (35.4-49) 08/06/19 15:15 MCV 85.4 fl (80-96) 08/06/19 15:15 MCH 27.8 pg (25.7-33.7) D 08/06/19 15:15 MCHC 32.6 g/dl (32.0-35.9) 08/06/19 15:15 RDW 15.9 % (11.9-15.9) D 08/06/19 15:15 Plt Count 373 K/MM3 (134-434) D 08/06/19 15:15 MPV 9.4 fl (7.5-11.1) 08/06/19 15:15 Sodium 138 mmol/L (136-145) 08/06/19 15:15 Potassium 4.2 mmol/L (3.5-5.1) 08/06/19 15:15 Chloride 105 mmol/L (98-107) 08/06/19 15:15 Carbon Dioxide 28 mmol/L (21-32) 08/06/19 15:15 Anion Gap 5 MMOL/L (8-16) L 08/06/19 15:15 BUN 10.7 mg/dL (7-18) 08/06/19 15:15 Creatinine 0.8 mg/dL (0.55-1.3) 08/06/19 15:15 Est GFR (CKD-EPI)AfAm 129.51 08/06/19 15:15 Est GFR (CKD-EPI)NonAf 111.74 08/06/19 15:15 Random Glucose 102 mg/dL (74-106) 08/06/19 15:15 Calcium 9.0 mg/dL (8.5-10.1) 08/06/19 15:15 Total Bilirubin 0.2 mg/dL (0.2-1) 08/06/19 15:15 AST 35 U/L (15-37) 08/06/19 15:15 ALT 40 U/L (13-61) 08/06/19 15:15 Alkaline Phosphatase 196 U/L (45-117) H 08/06/19 15:15 Total Protein 8.6 g/dl (6.4-8.2) H 08/06/19 15:15 Albumin 3.5 g/dl (3.4-5.0) 08/06/19 15:15 Syphilis Serology Non-reactive (NONREACTIVE) 08/06/19 15:15 HIV Ag/Ab Combo Qual Negative (NEGATIVE) 08/07/19 07:15 lab noted - Treatment Hospital Course: Detox Protocol Followed, Detoxed Safely, Responded well, Discharged Condition Good, Rehab Referral Accepted Patient has Accepted a Rehab Referral to: [facility] - Medication Discharge Medications: Ambulatory Orders Buprenorphine HCl/Naloxone HCl [Buprenorp-Nalox 4-1 mg Sl Film] 2 each SL TID 7 Days #42 film MDD 6 08/09/19 Buprenorphine HCl/Naloxone HCl [Buprenorp-Nalox 4-1 mg Sl Film] 6 each SL DAILY 7 Days #42 film MDD 3 08/09/19 Buprenorphine HCl/Naloxone HCl [Buprenorp-Nalox 8-2 mg Sl Film] 1 each SL BID 7 Days #14 film MDD 2 08/09/19 Buprenorphine/Naloxone [Suboxone 8Mg/2Mg Sl Film -] 1 each SL DAILY 7 Days #30 packet MDD 1.5 08/09/19 Buprenorphine/Naloxone [Suboxone 8Mg/2Mg Sl Film -] 2 each SL DAILY 7 Days #14 packet MDD 2 08/09/19 - Diagnosis (1) Opioid dependence with withdrawal Status: Acute (2) Nicotine dependence Status: Acute Qualifiers: Nicotine product type: cigarettes Substance use status: in withdrawal Qualified Code(s): F17.213 - Nicotine dependence, cigarettes, with withdrawal (3) Asthma Status: Chronic Qualifiers: Asthma severity: mild Asthma persistence: intermittent Asthma complication type: with status asthmaticus Qualified Code(s): J45.22 - Mild intermittent asthma with status asthmaticus (4) COPD (chronic obstructive pulmonary disease) Status: Chronic Qualifiers: COPD type: emphysema Emphysema type: panlobular Qualified Code(s): J43.1 - Panlobular emphysema - AMA Did Patient Leave Against Medical Advice: No COWS (PN) - Opiate Withdrawal Resting Pulse: 0= [place] 80 or Below Sweatin= Chills/Flushing Restless Observation: 0= Sits Still Pupil Size: 0= Normal to Room Light Bone or Joint Aches: 1= Mild Discomfort Runny Nose/ Eye Tearin= Nasal Congestion GI Upset > 30mins: 1= Stomach Cramp Tremor Observation of Outstretched Hands: 0= None Yawning Observation: 2= >3x During Session Anxiety or Irritability: 1=Feels Anxious/Irritable Goose Flesh Skin: 0=Smooth Skin COWS Score: 7
[2019-08-10] MEDS: PRENATAL VITAMINS W/ FOLIC ACID TABLET (FP) PO SCH (09:32)
[2019-08-10] MEDS: ESCITALOPRAM OXALATE 10 MG TABLET PO SCH (09:32)
[2019-08-10] MEDS ORDERED: METHADONE HCL 10 MG TABLET (FOR DETOX USE ONLY) PO ONE (10:00)
[2019-08-11] MEDS ORDERED: METHADONE HCL 5 MG TABLET (FOR DETOX USE ONLY) PO ONE (06:00)
== END 2019-08-10 09:36 | disposition home or self-care (01) | DRG 773 ==
LOC: YASAS 13:50 → Y3N 15:35
PROVIDERS: ADMIT Allergy & Immunology; ATTEND Allergy & Immunology
PROC: HZ2ZZZZ Detoxification Services for Substance Abuse Treatment (ICD-10-PCS; principal; 2019-08-06)
DX: F11.23 Opioid dependence with withdrawal (principal); F14.20 Cocaine dependence, uncomplicated; F17.210 Nicotine dependence, cigarettes, uncomplicated; F32.9 Major depressive disorder, single episode, unspecified; J45.22 Mild intermittent asthma with status asthmaticus; J43.1 Panlobular emphysema; R05 Cough; R63.4 Abnormal weight loss; Z68.1 Body mass index [BMI] 19.9 or less, adult; Z56.0 Unemployment, unspecified
CPT/HCPCS: 36415; 80053; 85027; 86780; 87389; Q0162